=== PATIENT | male | born 1945 | race Caucasian/White ===

== ENCOUNTER 2016-08-10 05:03 | Observation (INO) | payer OTHER, MEDICAID ==
[~2016-08-10] VITALS: Ht 157.5 cm; Wt 90.0 kg
[2016-08-10] VITALS (15 sets, daily range): BP systolic 111–160; BP diastolic 62–83; PULSE 90–114; RESP 18–22; TEMP 98.7–99; O2SAT 94–100
[~2016-08-10 05:03] MED LIST: ALBU0.63 NEB; ASPI81 PO; ATOR40TA49 PO; BACT2CRE TOP; BRIM0.2S; DUONI NEB; LORTA5 PO; METO25 PO; PRED10 PO; TORS20TA PO; TRAV0.00 EACH EYE; UMEC1AER INH; [UNRECOGNIZED DRUG - CODE] PO
[2016-08-10] MEDS ORDERED: RESP: ALBUTEROL 2.5 MG/IPRATROPIUM 0.5 MG NEB (PRN) ONE (05:09)
[2016-08-10] MEDS ORDERED: methylPREDNISolone SOD SUCC 125 MG/2 ML VIAL IVP ONE (05:15)
[2016-08-10] MEDS ORDERED: SODIUM CHLORIDE 0.9% FLUSH 10 ML FLUSH IVF PRN (05:15)
[2016-08-10] MEDS: RESP: ALBUTEROL 2.5 MG/IPRATROPIUM 0.5 MG NEB (SCH) INH ×3 (05:25→05:52)
[2016-08-10 05:29] LABS: AUTOMATED NEUTROPHIL # 9.7 TH/MM3 (1.8-7.7); BASOPHIL # 0.1 TH/MM3 (0-0.2); BASOPHIL % 0.5 % (0.0-2.0); EOSINOPHIL # 0.2 TH/MM3 (0-0.4); HEMATOCRIT 47.4 % (39.0-51.0); LYMPH % 29.7 % (9.0-44.0); LYMPHOCYTE # 4.7 TH/MM3 (1.0-4.8); MEAN CELL VOLUME 90.7 FL (80.0-100.0); MEAN CORPUSCULAR HEMOGLOBIN 30.8 PG (27.0-34.0); MEAN CORPUSCULAR HGB CONC 33.9 % (32.0-36.0); MONO % 7.9 % (0.0-8.0); NEUT % 60.9 % (16.0-70.0); PLATELET COUNT 291 TH/MM3 (150-450); RED BLOOD COUNT 5.23 MIL/MM3 (4.50-5.90); RED CELL DISTRIBUTION WIDTH 17.3 % (11.6-17.2)
[2016-08-10 05:33] LABS: HEMO FLAGS AUTO DIFF
[2016-08-10] MEDS ORDERED: TORS20TA PO (05:33)
--- NOTE | 2016-08-10 05:44 | PD ---
HPI . Dyspnea Chief Complaint: Respiratory Symptoms Time Seen by Provider: 05:12 Travel History International Travel<30 days: No Contact w/Intl Traveler<30days: No Traveled to known affect area: No History of Present Illness HPI Patient presents complaining with increased dyspnea. He has a history of COPD and is on home O2. He reports that his oxygen tank is running very low at home. He states that this is causing him to be very anxious. He states that he has used his nebulizer machine 3 times in the last 24 hours. He denies any fever. His dyspnea has been exacerbated by anxiety related to his nearly empty oxygen tank. Medical history is significant for hypertension, CABG which was done in November 2015, COPD. PFSH Past Medical History Hx Anticoagulant Therapy: Yes Arthritis: Yes Asthma: Yes Autoimmune Disease: No Anxiety: Yes Depression: No Heart Rhythm Problems: No Cancer: No Cardiovascular Problems: Yes High Cholesterol: Yes Chemotherapy: No Chest Pain: Yes Congestive Heart Failure: No COPD: Yes Diabetes: No Diminished Hearing: No Endocrine: No Gastrointestinal Disorders: Yes GERD: No Glaucoma: Yes Genitourinary: No Hiatal Hernia: No Hypertension: Yes Immune Disorder: No Implanted Vascular Access Dvce: No Musculoskeletal: Yes Neurologic: No Psychiatric: Yes Reproductive: No Respiratory: Yes (COPD) Radiation Therapy: No Sickle Cell Disease: No Sleep Apnea: No Thyroid Disease: No Ulcer: No Tetanus Vaccination: < 5 Years Influenza Vaccination: No Past Surgical History Abdominal Surgery: Yes AICD: No Arteriovenous Shunt: No Cardiac Surgery: Yes (cath, CABGX3 VESSELS) Cholecystectomy: Yes Ear Surgery: No Endocrine Surgery: No Eye Surgery: Yes Genitourinary Surgery: No Gynecologic Surgery: No Insulin Pump: No Joint Replacement: No Neurologic Surgery: No Oral Surgery: No Pacemaker: No Thoracic Surgery: Yes ( ) Tonsillectomy: Yes Other Surgery: Yes (catarcts, gallbladder, glaucoma) Social History Alcohol Use: Yes (OCC) Tobacco Use: No Substance Use: Yes (MARIJUANA) Allergies-Medications (Allergen,Severity, Reaction): Coded Allergies: *MDRO Multi-Drug Resistant Organism (Verified Adverse Reaction, Unknown, ) 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 Torsemide 20 Mg Tab 20 Mg PO BID 30 Days Resp: Albuterol/Ipratropium 2.5 Mg/0.5 Mg (Albuterol/Ipratropium) 1 Amp Nebu 1 Ampule NEB Q4HR NEB PRN 30 Days Metoprolol Tartrate 25 mg (Metoprolol Tartrate) 25 Mg Tab 12.5 Mg PO BID 30 Days Lipitor 40 Mg Tab (Atorvastatin Calcium) 40 Mg Tab 40 Mg PO DAILY 30 Days Aspirin Low Strength (Aspirin) 81 Mg Chw 81 Mg PO DAILY 30 Days KCl 8 Meq Cap (Potassium Chloride) 8 Meq Capcr 16 Meq PO DAILY 30 Days Reported Torsemide 20 Mg Tab 40 Mg PO BID Travatan Z (Travoprost) 0.004 % Finesse 1 Drop EACH EYE HS Brimonidine Tartrate 0.2 % Sarah 1 Drop TID Anoro Ellipta 62.5-25 Mcg/INH (Umeclidinium-Vilanterol) 1 Aer Aer 1 Puff INH DAILY Accuneb 0.63 mg/3 ml (Albuterol Sulfate) 0.63 Mg/3 Ml Neb 0.63 Mg NEB DIRECTED Review of Systems Except as stated in HPI: all other systems reviewed are Neg General / Constitutional: No: Fever, Chills Respiratory: Positive: Shortness of Breath, Wheezing Psychiatric: Positive: Anxiety Physical Exam Narrative GENERAL: Patient is "tripoding." SKIN: Warm and dry. HEAD: Atraumatic. Normocephalic. EYES: Pupils equal and round. Extraocular movements are intact. ENT: No nasal bleeding or discharge. Mucous membranes pink and moist. NECK: Trachea midline. Neck is supple. CARDIOVASCULAR: Regular rate and rhythm. Heart sounds are normal. RESPIRATORY: No accessory muscle use. Diffuse inspiratory and expiratory wheezing. GASTROINTESTINAL: Abdomen soft, non-tender, nondistended. MUSCULOSKELETAL: No obvious deformities. No edema. NEUROLOGICAL: Awake and alert. No obvious cranial nerve deficits. Motor grossly within normal limits. Normal speech. PSYCHIATRIC: Appropriate mood and affect; insight and judgment normal. Data Data Last Documented VS Vital Signs Date Time Temp Pulse Resp B/P Pulse Ox O2 Delivery O2 Flow Rate FiO2 08/10/16 06:21 97 20 133/67 98 Nasal Cannula 3 08/10/16 05:56 98.9 Orders Albuterol-Ipratropium Neb (Duoneb Neb) (08/10/16 05:09) Complete Blood Count With Diff (08/10/16 05:12) Basic Metabolic Panel (Bmp) (08/10/16 05:12) B-Type Natriuretic Peptide (08/10/16 05:12) Ckmb (Isoenzyme) Profile (08/10/16 05:12) Troponin I (08/10/16 05:12) Iv Access Insert/Monitor (08/10/16 05:12) Ecg Monitoring (08/10/16 05:12) Oximetry (08/10/16 05:12) Oxygen Administration (08/10/16 05:12) Chest, Single Ap (08/10/16 05:12) Sodium Chloride 0.9% Flush (Ns Flush) (08/10/16 05:15) Methylprednisolone So Succ Inj (Solumedr (08/10/16 05:15) Albuterol-Ipratropium Neb (Duoneb Neb) (08/10/16 05:15) CKMB (08/10/16 05:15) CKMB% (08/10/16 05:15) Labs Laboratory Tests Test 08/10/16 05:15 White Blood Count 16.0 TH/MM3 Red Blood Count 5.23 MIL/MM3 Hemoglobin 16.1 GM/DL Hematocrit 47.4 % Mean Corpuscular Volume 90.7 FL Mean Corpuscular Hemoglobin 30.8 PG Mean Corpuscular Hemoglobin 33.9 % Concent Red Cell Distribution Width 17.3 % Platelet Count 291 TH/MM3 Mean Platelet Volume 7.7 FL Neutrophils (%) (Auto) 60.9 % Lymphocytes (%) (Auto) 29.7 % Monocytes (%) (Auto) 7.9 % Eosinophils (%) (Auto) 1.0 % Basophils (%) (Auto) 0.5 % Neutrophils # (Auto) 9.7 TH/MM3 Lymphocytes # (Auto) 4.7 TH/MM3 Monocytes # (Auto) 1.3 TH/MM3 Eosinophils # (Auto) 0.2 TH/MM3 Basophils # (Auto) 0.1 TH/MM3 CBC Comment AUTO DIFF Differential Total Cells 100 Counted Neutrophils % (Manual) 57 % Band Neutrophils % 3 % Lymphocytes % 33 % Monocytes % 4 % Neutrophils # (Manual) 10.1 TH/MM3 Metamyelocytes 1 % Myelocytes 2 % Differential Comment FINAL DIFF MANUAL Atypical Lymphocytes % Platelet Estimate NORMAL Platelet Morphology Comment NORMAL Red Cell Morphology Comment NORMAL Sodium Level 138 MEQ/L Potassium Level 3.4 MEQ/L Chloride Level 98 MEQ/L Carbon Dioxide Level 31.7 MEQ/L Anion Gap 8 MEQ/L Blood Urea Nitrogen 32 MG/DL Creatinine 1.49 MG/DL Estimat Glomerular Filtration 47 ML/MIN Rate Random Glucose 116 MG/DL Calcium Level 8.7 MG/DL Total Creatine Kinase 135 U/L Creatine Kinase MB 5.8 NG/ML Troponin I 0.14 NG/ML B-Type Natriuretic Peptide 125 PG/ML MDM Medical Decision Making Medical Screen Exam Complete: Yes Emergency Medical Condition: Yes Medical Record Reviewed: Yes (patient was admitted here from for dyspnea. He had a left pleural effusion which was drained with a thoracostomy tube. Intubation was required at that time.) Interpretation(s) EKG has a sinus rhythm with no acute ST segment changes. Differential Diagnosis Differential diagnosis of dyspnea includes but is not limited to congestive heart failure, pneumonia, wheezing, pneumothorax, pulmonary embolism Narrative Course Patient presents with dyspnea. He was wheezing. I have ordered labs and Solu- Medrol. He will be evaluated for pneumonia, CHF, pneumothorax, pleural effusion. CBC & BMP Diagram 08/10/16 05:15 Patient is on steroids which probably explains his white blood count. BNP is 125. Troponin is 0.14. His previous troponins have not been that elevated. His CK-MB is 5.8. Patient reports that he feels much better. He is amenable to admission for further evaluation of the elevated troponin. Diagnosis Primary Impression: COPD exacerbation Additional Impressions: Elevated troponin COPD (chronic obstructive pulmonary disease) Qualified Code: J44.9 - Chronic obstructive pulmonary disease, unspecified COPD type Condition: Stable Lilia Hazel MD August 10, 2016 05:43
[2016-08-10 06:09] LABS: ANION GAP 8 MEQ/L (5-15); BICARBONATE 31.7 MEQ/L (21.0-32.0); BLOOD UREA NITROGEN 32 MG/DL (7-18); CHLORIDE 98 MEQ/L (98-107); GLOMERULAR FILTRATION RATE 47 ML/MIN (>89); POTASSIUM 3.4 MEQ/L (3.5-5.1); SODIUM (NA) 138 MEQ/L (136-145)
[2016-08-10 06:10] LABS: CREATINE KINASE 135 U/L (39-308)
[2016-08-10 06:12] LABS: BANDS 3 % (0-6); METAMYELOCYTES 1 % (0-1); MYELOCYTES 2 % (0-0); NEUTROPHIL # MANUAL DIFF 10.1 TH/MM3 (1.8-7.7); POLYS (SEG NEUTROPHILS) 57 % (16-70); WBC DIFF SAMPLE 100
[2016-08-10 06:13] LABS: PLATELET ESTIMATE SMEAR NORMAL (NORMAL); PLATELET MORPHOLOGY NORMAL (NORMAL); SCAN/DIFF FINAL DIFF MANUAL
[2016-08-10 06:22] LABS: CKMB 5.8 NG/ML (0.5-3.6)
--- NOTE | 2016-08-10 06:32 | RADRPT ---
EXAM DATE/TIME: 08/10/2016 05:26 [facility] COMPARISON: CHEST SINGLE AP, January 15, 2016, 11:30. INDICATIONS : Short of breath. MEDICAL HISTORY : Chronic obstructive pulmonary disease. Emphysema. SURGICAL HISTORY : None. ENCOUNTER: Initial ACUITY: 1 day PAIN SCORE: 0/10 LOCATION: Bilateral chest FINDINGS: The cardiac silhouette is normal in transverse diameter. Median sternotomy wires are present. There a re chronic fibrotic changes bilaterally. There is no evidence of pneumonia. CONCLUSION: 1. Cardiomegaly. Chronic fibrotic changes bilaterally unchanged from the prior study. No acute pulmon shena disease. Lam Rico MD on August 10, 2016 at 6:29 Board Certified Radiologist. This report was verified electronically.
[2016-08-10] MEDS ORDERED: ASPIRIN 81 MG CHEW TAB CHEW ONE (07:30)
[2016-08-10] MEDS ORDERED: SODIUM CHLORIDE 0.9% FLUSH 10 ML FLUSH IV FLUSH PRN (07:45)
[2016-08-10] MEDS ORDERED: MAGNESIUM HYDROXIDE SUSP 30 ML CUP PO PRN (07:45)
[2016-08-10] MEDS ORDERED: ONDANSETRON HCL 4 MG/2 ML VIAL IVP PRN (07:45)
[2016-08-10] MEDS ORDERED: NALOXONE HCL 0.4 MG/ML AMP IV PRN (07:45)
[2016-08-10] MEDS ORDERED: ACETAMINOPHEN 325 MG TAB PO PRN (07:45)
--- NOTE | 2016-08-10 07:55 | HHI.HP ---
[facility] Izzy Diaz MD Admission Diagnosis copd exacerbation Diagnoses: (1) COPD exacerbation Diagnosis: Principal (2) Elevated troponin Diagnosis: Secondary Chief Complaint: Shortness of Breath Travel History International Travel<30 Days: No Contact w/Intl Traveler <30 Da: No Traveled to Known Affected Are: No Review of Systems Constitutional: DENIES: Fever, Chills Eyes: DENIES: Blurred vision, Diplopia Ears, nose, mouth, throat: DENIES: Hearing loss, Vertigo Respiratory: COMPLAINS OF: Wheezing, Shortness of breath Cardiovascular: DENIES: Chest pain, Palpitations Gastrointestinal: DENIES: Abdominal pain, Black stools Musculoskeletal: DENIES: Joint pain, Muscle aches Integumentary: DENIES: Abnormal pigmentation Hematologic/lymphatic: DENIES: Bruising Immunologic/allergic: DENIES: Eczema Neurologic: DENIES: Abnormal gait, Headache Psychiatric: DENIES: Anxiety, Confusion Past Family Social History Past Medical History COPD CHF CAD CKD Old [place] Past Surgical History CABGx3 Reported Medications Reported Meds & Active Scripts Active Deltasone 10 Mg Tab (Prednisone) 10 Mg Tab 10 Mg PO DIRECTED 21 Days 50 mg po daily for one week then 40 mg po daily. Torsemide 20 Mg Tab 20 Mg PO BID 30 Days Resp: Albuterol/Ipratropium 2.5 Mg/0.5 Mg (Albuterol/Ipratropium) 1 Amp Nebu 1 Ampule NEB Q4HR NEB PRN 30 Days Metoprolol Tartrate 25 mg (Metoprolol Tartrate) 25 Mg Tab 12.5 Mg PO BID 30 Days Lipitor 40 Mg Tab (Atorvastatin Calcium) 40 Mg Tab 40 Mg PO DAILY 30 Days Aspirin Low Strength (Aspirin) 81 Mg Chw 81 Mg PO DAILY 30 Days KCl 8 Meq Cap (Potassium Chloride) 8 Meq Capcr 16 Meq PO DAILY 30 Days Reported Torsemide 20 Mg Tab 40 Mg PO BID Travatan Z (Travoprost) 0.004 % Finesse 1 Drop EACH EYE HS Brimonidine Tartrate 0.2 % Sarah 1 Drop TID Anoro Ellipta 62.5-25 Mcg/INH (Umeclidinium-Vilanterol) 1 Aer Aer 1 Puff INH DAILY Accuneb 0.63 mg/3 ml (Albuterol Sulfate) 0.63 Mg/3 Ml Neb 0.63 Mg NEB DIRECTED Allergies: Coded Allergies: *MDRO Multi-Drug Resistant Organism (Verified Adverse Reaction, Unknown, ) 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) Physical Exam Vital Signs Vital Signs Date Time Temp Pulse Resp B/P Pulse Ox O2 Delivery O2 Flow Rate FiO2 08/10/16 06:50 93 20 131/66 97 Nasal Cannula 3 08/10/16 06:21 97 20 133/67 98 Nasal Cannula 3 08/10/16 05:56 98.9 114 20 160/77 98 Nasal Cannula 4 08/10/16 05:26 99 Nasal Cannula 4 08/10/16 05:26 106 22 160/77 97 Nasal Cannula 4 08/10/16 05:14 97 Nasal Cannula 4 08/10/16 05:14 98 Nasal Cannula 4 08/10/16 05:10 99.0 110 22 160/77 100 Physical Exam GENERAL: This is a well-nourished, well-developed patient, in no apparent distress. SKIN: No rashes, ecchymoses or lesions. Cool and dry. HEAD: Atraumatic. Normocephalic. No temporal or scalp tenderness. EYES: Pupils equal round and reactive. Extraocular motions intact. No scleral icterus. No injection or drainage. ENT: Nose without bleeding, purulent drainage or septal hematoma. Throat without erythema, tonsillar hypertrophy or exudate. Uvula midline. Airway patent. NECK: Trachea midline. No JVD or lymphadenopathy. Supple, nontender, no meningeal signs. CARDIOVASCULAR: Regular rate and rhythm without murmurs, gallops, or rubs. RESPIRATORY: Clear to auscultation. Breath sounds equal bilaterally. No wheezes , rales, or rhonchi. GASTROINTESTINAL: Abdomen soft, non-tender, nondistended. No hepato-splenomegaly , or palpable masses. No guarding. MUSCULOSKELETAL: Extremities without clubbing, cyanosis, or edema. No joint tenderness, effusion, or edema noted. No calf tenderness. Negative Homans sign bilaterally. NEUROLOGICAL: Awake and alert. Cranial nerves II through XII intact. Motor and sensory grossly within normal limits. Five out of 5 muscle strength in all muscle groups. Normal speech. Laboratory Laboratory Tests Test 08/10/16 05:15 White Blood Count 16.0 Red Blood Count 5.23 Hemoglobin 16.1 Hematocrit 47.4 Mean Corpuscular Volume 90.7 Mean Corpuscular Hemoglobin 30.8 Mean Corpuscular Hemoglobin 33.9 Concent Red Cell Distribution Width 17.3 Platelet Count 291 Mean Platelet Volume 7.7 Neutrophils (%) (Auto) 60.9 Lymphocytes (%) (Auto) 29.7 Monocytes (%) (Auto) 7.9 Eosinophils (%) (Auto) 1.0 Basophils (%) (Auto) 0.5 Neutrophils # (Auto) 9.7 Lymphocytes # (Auto) 4.7 Monocytes # (Auto) 1.3 Eosinophils # (Auto) 0.2 Basophils # (Auto) 0.1 CBC Comment AUTO DIFF Differential Total Cells 100 Counted Neutrophils % (Manual) 57 Band Neutrophils % 3 Lymphocytes % 33 Monocytes % 4 Neutrophils # (Manual) 10.1 Metamyelocytes 1 Myelocytes 2 Differential Comment FINAL DIFF MANUAL Atypical Lymphocytes Platelet Estimate NORMAL Platelet Morphology Comment NORMAL Red Cell Morphology Comment NORMAL Sodium Level 138 Potassium Level 3.4 Chloride Level 98 Carbon Dioxide Level 31.7 Anion Gap 8 Blood Urea Nitrogen 32 Creatinine 1.49 Estimat Glomerular Filtration 47 Rate Random Glucose 116 Calcium Level 8.7 Total Creatine Kinase 135 Creatine Kinase MB 5.8 Troponin I 0.14 B-Type Natriuretic Peptide 125 Result Diagram: 08/10/16 0515 08/10/16 0515 Assessment and Plan Problem List: (1) Elevated troponin ICD Code: R74.8 Status: Acute (2) COPD exacerbation ICD Code: J44.1 Status: Acute (3) CHF (congestive heart failure) ICD Code: I50.9 Status: Acute (4) Old AR (myocardial infarction) ICD Code: I25.2 Status: Acute (5) CKD (chronic kidney disease) ICD Code: N18.9 Status: Acute Physician Certification 2 Midnight Certification Type: Admission for Inpatient Services Order for Inpatient Services The services are ordered in accordance with Medicare regulations or non- Medicare payer requirements, as applicable. In the case of services not specified as inpatient-only, they are appropriately provided as inpatient services in accordance with the 2-midnight benchmark. Estimated LOS (days): 4 days is the estimated time the patient will need to remain in the hospital, assuming treatment plan goals are met and no additional complications. Post-Hospital Plan: Uriel Garcia MD August 10, 2016 07:54
[2016-08-10] MEDS ORDERED: RESP: ALBUTEROL 2.5 MG/3 ML NEB (PRN) INH (08:00)
[2016-08-10] MEDS ORDERED: PILL SPLITTER OTHER PRN (08:00)
[2016-08-10] MEDS: ENOXAPARIN SODIUM 40 MG/0.4 ML SYRINGE SQ SCH (08:54)
[2016-08-10] MEDS: methylPREDNISolone SOD SUCC 125 MG/2 ML VIAL IVP SCH ×3 (08:55→21:18)
[2016-08-10] MEDS ORDERED: UMECLIDINIUM 62.5 MCG/VILANTEROL 25 MCG INHALER INH SCH (09:00)
[2016-08-10] MEDS ORDERED: ATORVASTATIN 40 MG TAB PO SCH ×2 (09:00→21:00)
[2016-08-10] MEDS ORDERED: TORSEMIDE 20 MG TAB PO SCH (09:00)
[2016-08-10] MEDS ORDERED: METOPROLOL TARTRATE 25 MG TAB PO SCH (09:00)
[2016-08-10] MEDS ORDERED: ASPIRIN 81 MG CHEW TAB PO SCH (09:00)
[2016-08-10] MEDS ORDERED: POTASSIUM CHLORIDE 8 MEQ CAP PO SCH (09:00)
[2016-08-10] MEDS: RESP: IPRATROPIUM 0.5 MG/2.5 ML NEB INH SCH ×3 (09:23→21:43)
[2016-08-10] MEDS: AZITHROMYCIN 250 MG TAB PO SCH (09:32)
[2016-08-10] MEDS: TORSEMIDE 20 MG TAB PO SCH ×2 (09:33→21:39)
[2016-08-10] MEDS: SODIUM CHLORIDE 0.9% FLUSH 10 ML FLUSH IV FLUSH SCH ×2 (09:34→21:18)
[2016-08-10] MEDS: BRIMONIDINE TARTRATE 0.2% OPHT SOLN 5 ML BTL EACH EYE SCH ×3 (09:34→18:00)
[2016-08-10] MEDS ORDERED: POTA-163 PO (11:02)
[2016-08-10] MEDS ORDERED: TRIA.1%T TOPICAL (11:02)
[2016-08-10] MEDS ORDERED: VENTAER INH (11:02)
[2016-08-10] MEDS ORDERED: BRIM0.2S4 EACH EYE (11:02)
[2016-08-10] MEDS ORDERED: PRED10 PO (11:02)
[2016-08-10] MEDS ORDERED: BUSP5TAB PO (11:02)
[2016-08-10] MEDS ORDERED: METO25TA3 PO (11:02)
[2016-08-10] MEDS ORDERED: KETO2CRE TOPICAL (11:02)
[2016-08-10] MEDS ORDERED: ADVA250A INH (11:02)
[2016-08-10] MEDS ORDERED: LORA-361 PO (11:02)
[2016-08-10] MEDS ORDERED: ZOLP5TAB3 PO (11:02)
[2016-08-10] MEDS ORDERED: TRAZ100T4 PO (11:02)
[2016-08-10] MEDS ORDERED: ATOR40TA16 PO (11:02)
[2016-08-10] MEDS ORDERED: TRAV0.00 EACH EYE (11:02)
[2016-08-10] MEDS ORDERED: SPIRCAP INH (11:02)
--- NOTE | 2016-08-10 11:51 | EKG ---
Date Performed: 08/10/2016 Time Performed: 05:11:59 PTAGE: 70 years EKG: SINUS TACHYCARDIA RIGHT ATRIAL ENLARGEMENT POSSIBLE LEFT ATRIAL ENLARGEMENT DIFFUSE NONSPEC IFIC ST/T CHANGES ABNORMAL ECG PREVIOUS TRACING : 08/10/2016 02.42 No significant change from previous tracing noted. DOCTOR: Jayson Olivares Interpretating Date/Time 08/10/2016 11:49:42
[2016-08-10] MEDS ORDERED: FUROSEMIDE 40 MG/4 ML VIAL IV PUSH ONE (15:00)
[2016-08-10] MEDS ORDERED: ZOLPIDEM TARTRATE 5 MG TAB PO PRN (15:00)
--- NOTE | 2016-08-10 19:55 | HHI.HP ---
[facility] Izzy Diaz MD Admission Diagnosis copd exacerbation Diagnoses: (1) Elevated troponin Diagnosis: Secondary (2) COPD exacerbation Diagnosis: Principal (3) CHF (congestive heart failure) Diagnosis: Secondary (4) Old [place] (myocardial infarction) Diagnosis: Principal (5) CKD (chronic kidney disease) Diagnosis: Principal (6) CHF exacerbation Diagnosis: Principal Travel History International Travel<30 Days: No Contact w/Intl Traveler <30 Da: No Traveled to Known Affected Are: No History of Present Illness Mr. Mendoza is a 70 year old male. He is here today due to acute respiratory distress. He has COPD with home O2 use (intermittently). Part of his distress is related to an exacerbation of his COPD. Part is related to his CHF which has not been controlled in about two weeks regarding fluid balance. He has no other complaints. When seen he is feeling better than when he arrived to the ER , but he is not yet at baseline. Review of Systems Constitutional: DENIES: Fever, Chills Ears, nose, mouth, throat: DENIES: Hearing loss, Vertigo Respiratory: COMPLAINS OF: Wheezing, Shortness of breath Cardiovascular: DENIES: Chest pain, Palpitations Gastrointestinal: DENIES: Abdominal pain, Black stools Musculoskeletal: COMPLAINS OF: Back pain, DENIES: Joint pain Integumentary: DENIES: Abnormal pigmentation Hematologic/lymphatic: DENIES: Bruising Immunologic/allergic: DENIES: Eczema Neurologic: DENIES: Headache, Tremor Psychiatric: DENIES: Anxiety, Confusion Past Family Social History Past Medical History COPD CHF CAD CKD Old [place] Past Surgical History CABGx3 Allergies: Coded Allergies: *MDRO Multi-Drug Resistant Organism (Verified Adverse Reaction, Unknown, ) 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) Active Ordered Medications Administered Medications Medications (Trade) Dose Ordered Sig/Kenneth Route PRN Reason Start Time Stop Time Status Last Admin Dose Admin Sodium Chloride (NS Flush) 2 ml BID IV FLUSH 08/10/16 09:00 08/10/16 09:34 Enoxaparin Sodium (Lovenox Inj) 40 mg Q24H SQ 08/10/16 07:45 08/10/16 08:54 Atorvastatin Calcium (Lipitor) 40 mg DAILY PO 08/10/16 09:00 08/10/16 09:33 Brimonidine Tartrate (Alphagan 0.2% Opth Soln) 1 drop TID EACH EYE 08/10/16 09:00 08/10/16 12:29 Metoprolol Tartrate (Lopressor) 12.5 mg BID PO 08/10/16 09:00 08/10/16 09:33 Potassium Chloride (KCl) 16 meq DAILY PO 08/10/16 09:00 08/10/16 09:34 Torsemide (Demadex) 40 mg BID PO 08/10/16 09:00 08/10/16 09:33 Torsemide (Demadex) 20 mg BID PO 08/10/16 09:00 08/10/16 09:33 Methylprednisolone Sodium Succinate (SoluMEDROL INJ) 60 mg Q6H IVP 08/10/16 08:00 08/10/16 14:44 Azithromycin (Zithromax) 500 mg Taper DAILY PO 08/10/16 09:00 08/15/16 08:59 08/10/16 09:32 Miscellaneous (Pill Splitter) 1 ea UNSCH PRN OTHER SEE LABEL COMMENTS 08/10/16 08:00 08/10/16 09:33 Family History none Social History Past history of smoking No alcohol No current smoking No drug abuse Physical Exam Vital Signs Vital Signs Date Time Temp Pulse Resp B/P Pulse Ox O2 Delivery O2 Flow Rate FiO2 08/10/16 19:32 98.7 100 18 111/62 94 08/10/16 18:04 96 08/10/16 15:32 91 18 134/83 96 08/10/16 14:51 94 20 133/71 96 Nasal Cannula 3 08/10/16 12:08 95 18 124/79 96 Nasal Cannula 3 08/10/16 09:24 96 Nasal Cannula 3.00 08/10/16 08:52 94 18 120/79 94 Nasal Cannula 3 08/10/16 06:50 93 20 131/66 97 Nasal Cannula 3 08/10/16 06:21 97 20 133/67 98 Nasal Cannula 3 08/10/16 05:56 98.9 114 20 160/77 98 Nasal Cannula 4 08/10/16 05:26 99 Nasal Cannula 4 08/10/16 05:26 106 22 160/77 97 Nasal Cannula 4 08/10/16 05:14 97 Nasal Cannula 4 08/10/16 05:14 98 Nasal Cannula 4 08/10/16 05:10 99.0 110 22 160/77 100 Physical Exam GENERAL: NAD, A&Ox3 SKIN: Warm and dry. HEAD: Normocephalic. EYES: No scleral icterus. No injection or drainage. NECK: Supple, trachea midline. No JVD or lymphadenopathy. CARDIOVASCULAR: Regular rate and rhythm without murmurs, gallops, or rubs. RESPIRATORY: Breath sounds equal bilaterally. No accessory muscle use. GASTROINTESTINAL: Abdomen soft, non-tender, nondistended. MUSCULOSKELETAL: No cyanosis, or edema. BACK: Nontender without obvious deformity. No CVA tenderness. Laboratory Laboratory Tests Test 08/10/16 05:15 White Blood Count 16.0 Red Blood Count 5.23 Hemoglobin 16.1 Hematocrit 47.4 Mean Corpuscular Volume 90.7 Mean Corpuscular Hemoglobin 30.8 Mean Corpuscular Hemoglobin 33.9 Concent Red Cell Distribution Width 17.3 Platelet Count 291 Mean Platelet Volume 7.7 Neutrophils (%) (Auto) 60.9 Lymphocytes (%) (Auto) 29.7 Monocytes (%) (Auto) 7.9 Eosinophils (%) (Auto) 1.0 Basophils (%) (Auto) 0.5 Neutrophils # (Auto) 9.7 Lymphocytes # (Auto) 4.7 Monocytes # (Auto) 1.3 Eosinophils # (Auto) 0.2 Basophils # (Auto) 0.1 CBC Comment AUTO DIFF Differential Total Cells 100 Counted Neutrophils % (Manual) 57 Band Neutrophils % 3 Lymphocytes % 33 Monocytes % 4 Neutrophils # (Manual) 10.1 Metamyelocytes 1 Myelocytes 2 Differential Comment FINAL DIFF MANUAL Atypical Lymphocytes Platelet Estimate NORMAL Platelet Morphology Comment NORMAL Red Cell Morphology Comment NORMAL Sodium Level 138 Potassium Level 3.4 Chloride Level 98 Carbon Dioxide Level 31.7 Anion Gap 8 Blood Urea Nitrogen 32 Creatinine 1.49 Estimat Glomerular Filtration 47 Rate Random Glucose 116 Calcium Level 8.7 Total Creatine Kinase 135 Creatine Kinase MB 5.8 Troponin I 0.14 B-Type Natriuretic Peptide 125 Result Diagram: 08/10/1615 08/10/1615 Assessment and Plan Problem List: (1) Elevated troponin ICD Code: R74.8 Status: Acute (2) COPD exacerbation ICD Code: J44.1 Status: Acute (3) CHF (congestive heart failure) ICD Code: I50.9 Status: Acute (4) Old [place] (myocardial infarction) ICD Code: I25.2 Status: Acute (5) CKD (chronic kidney disease) ICD Code: N18.9 Status: Acute (6) CHF exacerbation ICD Code: I50.9 Status: Acute Assessment and Plan COPD Exacerbation Duonebs scheduled Albuterol PRN Azithromycin Systemic steroids PRN Oxygen Follow for improvement CHF Exacerbation Continue baseline treatment Caution due to ARF Point treatments with Lasix as needed, based on clinical and lab findings Elevated Troponin At expected elevation given CKD, CHF exacerbation and COPD Exacerbation No chest pain Repeat Troponin in AM CKD Follow renal function Uriel Ferreira MD August 10, 2016 19:55
[2016-08-10] MEDS ORDERED: traZODone HCL 100 MG TAB PO SCH (21:00)
[2016-08-10] MEDS ORDERED: LATANOPROST 0.005% OPHT SOLN 2.5 ML BTL EACH EYE SCH (21:00)
[2016-08-10] MEDS: TRIAMCINOLONE ACETONIDE 0.1% CREAM 15 GM TOPICAL SCH (21:00)
[2016-08-10] MEDS: LATANOPROST 0.005% OPHT SOLN 2.5 ML BTL EACH EYE SCH (21:18)
[2016-08-10] MEDS: POTASSIUM CHLORIDE 20 MEQ CONTROLLED RELEASE TAB PO SCH (21:19)
[2016-08-10] MEDS: busPIRone HCL 5 MG TAB PO SCH (21:19)
[2016-08-10] MEDS: METOPROLOL TARTRATE 25 MG TAB PO SCH (21:20)
[2016-08-11 00:10] VITALS: BP 101/60; PULSE 86; RESP 18; O2SAT 95
[2016-08-11] MEDS: methylPREDNISolone SOD SUCC 125 MG/2 ML VIAL IVP SCH ×2 (02:39→08:31)
[2016-08-11] MEDS: RESP: IPRATROPIUM 0.5 MG/2.5 ML NEB INH SCH (02:55)
[2016-08-11 04:02] VITALS: BP 102/66; PULSE 87; RESP 18; TEMP 98.6; O2SAT 93
[2016-08-11 05:56] LABS: AUTOMATED NEUTROPHIL # 18.9 TH/MM3 (1.8-7.7); BASOPHIL % 0.1 % (0.0-2.0); HEMATOCRIT 41.9 % (39.0-51.0); HEMO FLAGS DIFF FINAL; LYMPH % 3.8 % (9.0-44.0); LYMPHOCYTE # 0.8 TH/MM3 (1.0-4.8); MEAN CELL VOLUME 89.9 FL (80.0-100.0); MEAN CORPUSCULAR HGB CONC 34.4 % (32.0-36.0); MONO % 1.8 % (0.0-8.0); NEUT % 94.3 % (16.0-70.0); PLATELET COUNT 242 TH/MM3 (150-450); RED BLOOD COUNT 4.66 MIL/MM3 (4.50-5.90); RED CELL DISTRIBUTION WIDTH 17.1 % (11.6-17.2); WHITE BLOOD COUNT 20.1 TH/MM3 (4.0-11.0)
[2016-08-11 06:05] LABS: BICARBONATE 30.3 MEQ/L (21.0-32.0); POTASSIUM 3.2 MEQ/L (3.5-5.1)
[2016-08-11] MEDS ORDERED: FUROSEMIDE 40 MG/4 ML VIAL IV PUSH ONE (07:30)
[2016-08-11] MEDS: ENOXAPARIN SODIUM 40 MG/0.4 ML SYRINGE SQ SCH (07:45)
[2016-08-11] MEDS ORDERED: IPRASOL INH (08:05)
[2016-08-11] MEDS ORDERED: PRED20 PO (08:05)
[2016-08-11] MEDS ORDERED: AZIT250T3 PO (08:05)
--- NOTE | 2016-08-11 08:10 | HHI.DS ---
Discharge Summary Admission Date August 10, 2016 at 7:45 am Discharge Date: August 11, 2016 Admitting Diagnosis copd exacerbation (1) Elevated troponin ICD Code: R74.8 Diagnosis: Secondary (2) COPD exacerbation ICD Code: J44.1 Diagnosis: Principal (3) CHF (congestive heart failure) ICD Code: I50.9 Diagnosis: Secondary (4) Old NE (myocardial infarction) ICD Code: I25.2 Diagnosis: Secondary (5) CKD (chronic kidney disease) ICD Code: N18.9 Diagnosis: Secondary (6) CHF exacerbation ICD Code: I50.9 Diagnosis: Principal Procedures none Brief History - From Admission Mr. Mendoza is a 70 year old male. He is here today due to acute respiratory distress. He has COPD with home O2 use (intermittently). Part of his distress is related to an exacerbation of his COPD. Part is related to his CHF which has not been controlled in about two weeks regarding fluid balance. He has no other complaints. When seen he is feeling better than when he arrived to the ER , but he is not yet at baseline. CBC/BMP: 08/11/16 0508 08/11/16 0508 Significant Findings Laboratory Tests Test 08/10/16 08/11/16 05:15 05:08 White Blood Count 16.0 TH/MM3 20.1 TH/MM3 (4.0-11.0) (4.0-11.0) Red Cell Distribution Width 17.3 % (11.6-17.2) Neutrophils # (Auto) 9.7 TH/MM3 18.9 TH/MM3 (1.8-7.7) (1.8-7.7) Monocytes # (Auto) 1.3 TH/MM3 (0-0.9) Neutrophils # (Manual) 10.1 TH/MM3 (1.8-7.7) Myelocytes 2 % (0-0) Potassium Level 3.4 MEQ/L 3.2 MEQ/L (3.5-5.1) (3.5-5.1) Blood Urea Nitrogen 32 MG/DL (7-18) 33 MG/DL (7-18) Creatinine 1.49 MG/DL (0.60-1.30) Estimat Glomerular Filtration 47 ML/MIN (>89) 71 ML/MIN (>89) Rate Random Glucose 116 MG/DL 140 MG/DL (74-106) (74-106) Creatine Kinase MB 5.8 NG/ML (0.5-3.6) Troponin I 0.14 NG/ML 0.07 NG/ML (0.02-0.05) (0.02-0.05) B-Type Natriuretic Peptide 125 PG/ML (0-100) Neutrophils (%) (Auto) 94.3 % (16.0-70.0) Lymphocytes (%) (Auto) 3.8 % (9.0-44.0) Lymphocytes # (Auto) 0.8 TH/MM3 (1.0-4.8) Imaging Last Impressions Chest X-Ray 08/10/16 0512 Signed Impressions: Service Date/Time: Wednesday, August 10, 2016 05:26 - CONCLUSION: 1. Cardiomegaly. Chronic fibrotic changes bilaterally unchanged from the prior study. No acute pulmonary disease. Lam Rico MD PE at Discharge GENERAL: NAD, A&Ox3 SKIN: Warm and dry. HEAD: Normocephalic. EYES: No scleral icterus. No injection or drainage. NECK: Supple, trachea midline. No JVD or lymphadenopathy. CARDIOVASCULAR: Regular rate and rhythm without murmurs, gallops, or rubs. RESPIRATORY: Breath sounds equal bilaterally. No accessory muscle use. No wheezing. No crackles. GASTROINTESTINAL: Abdomen soft, non-tender, nondistended. MUSCULOSKELETAL: No cyanosis, or edema. BACK: Nontender without obvious deformity. No CVA tenderness. Pt update on day of discharge Feeling functional and ready for discharge. medically stable and clear for discharge. Hospital Course Mr. Mendoza was admitted with a COPD Exacerbation and CHF Exacerbation. With steroids, nebulized treatments, antibiotics and oxygen support he has improved regarding his COPD and is currently off his oxygen. With diuresis overnight, his peripheral and pulmonary edema is also improved. He is feeling at baseline. Renal function also improved with diuresis. Medically stable for discharge to home today. Pt Condition on Discharge: Stable Discharge Disposition: Discharge Home Discharge Time: <= 30 minutes Discharge Instructions DIET: Follow Instructions for: Heart Healthy Diet Activities you can perform: Regular-No Restrictions Follow up Referrals: PCP Follow-up - 2 Weeks New Medications: Azithromycin (Azithromycin) 250 Mg Tab 250 MG PO DIRECTED Take 2 tabs (500 mg) on day 1 then 1 tab daily x 4 days. Infection #5 Ref 0 TAB Ipratropium-Albuterol Neb (Duoneb) 0.5-2.5 Mg/3 Ml Neb 1 NEBULE INH BID Breathing Treatment #60 Ref 0 NEBULE Prednisone (Prednisone) 20 Mg Tab 40 MG PO DAILY Take 40 mg (2 tablets) daily for 5 days Shortness of Breath #3 Ref 0 TAB Continued Medications: Albuterol 18 GM Inh (Ventolin Hfa 18 GM Inh) 90 Mcg/Act Aer 2 PUFF INH Q6H PRN SHORTNESS OF BREATH #1 Ref 0 INHALER Atorvastatin (Atorvastatin) 40 Mg Tab 40 MG PO HS Cholesterol Management #30 Ref 0 TAB Brimonidine Opth Drops (Brimonidine Opth Drops) 0.2% Soln 1 DROP EACH EYE DAILY Intraocular pressure #1 Ref 0 BOTTLE Buspirone (Buspirone) 5 Mg Tab 5 MG PO BID Anxiety Ref 0 TAB Fluticasone-Salmeterol Inh (Advair Diskus Inh) 250-50 Mcg/Blist Aer 1 PUFF INH BID Rinse mouth after use. #1 Ref 0 INHALER Ketoconazole Topical (Ketoconazole Topical) 2% Cream 1 APPLIC TOPICAL DAILY Fungal Infection #15 Ref 0 GM Loratadine (Claritin) 10 Mg Tab 10 MG PO DAILY Allergy Management Ref 0 TAB Metoprolol Tartrate (Metoprolol Tartrate) 25 Mg Tab 12.5 MG PO BID #60 Ref 0 TAB Potassium Chloride ER (Potassium Chloride ER) 20 Meq Tab 20 MEQ PO BID Electrolyte Replacement #60 Ref 0 TAB Prednisone (Prednisone) 10 Mg Tab 10 MG PO TITRATING DOSE Take 1 tablet three times a day x 5 days then twice a day x 5 days then daily x 5 days Days 15 Ref 0 TAB Tiotropium Inh (Spiriva Handihaler) 18 Mcg Cap 18 MCG INH DAILY 1 capsule = 18 mcg COPD #30 Ref 0 CAP Torsemide (Torsemide) 20 Mg Tab 40 MG PO BID #60 Ref 0 TAB Travoprost Opth Drops (Travatan Z Opth Drops) 0.004 % Soln 1 DROP EACH EYE HS Glaucoma #1 Ref 0 BOTTLE Trazodone (Trazodone) 100 Mg Tab 100 MG PO HS Control Depression #30 Ref 0 TAB Triamcinolone Topical (Triamcinolone Topical) 0.1% Cream 1 APPLIC TOPICAL BID Inflammation Ref 0 GM Zolpidem (Zolpidem) 5 Mg Tab 5 MG PO HS PRN INSOMNIA Ref 0 TAB Uriel Ferreira MD August 11, 2016 8:10 am
[2016-08-11 08:20] VITALS: BP 140/71; PULSE 87; RESP 18; TEMP 98.4; O2SAT 98
[2016-08-11] MEDS: LATANOPROST 0.005% OPHT SOLN 2.5 ML BTL EACH EYE SCH (08:30)
[2016-08-11] MEDS: TRIAMCINOLONE ACETONIDE 0.1% CREAM 15 GM TOPICAL SCH (08:31)
[2016-08-11] MEDS: SODIUM CHLORIDE 0.9% FLUSH 10 ML FLUSH IV FLUSH SCH (08:32)
[2016-08-11] MEDS: TORSEMIDE 20 MG TAB PO SCH (08:33)
[2016-08-11] MEDS: METOPROLOL TARTRATE 25 MG TAB PO SCH (08:34)
[2016-08-11] MEDS: busPIRone HCL 5 MG TAB PO SCH (08:34)
[2016-08-11] MEDS: AZITHROMYCIN 250 MG TAB PO SCH (08:35)
[2016-08-11] MEDS: POTASSIUM CHLORIDE 20 MEQ CONTROLLED RELEASE TAB PO SCH (08:35)
[2016-08-11] MEDS ORDERED: TIOTROPIUM BROMIDE 18 MCG INH INH SCH (09:00)
[2016-08-11] MEDS ORDERED: predniSONE 10 MG TAB PO SCH (09:00)
[2016-08-11] MEDS ORDERED: BRIMONIDINE TARTRATE 0.2% OPHT SOLN 5 ML BTL EACH EYE SCH (09:00)
[2016-08-11] MEDS ORDERED: LORATADINE 10 MG TAB PO SCH (09:00)
[2016-08-11] MEDS ORDERED: KETOCONAZOLE 2% CREAM 15 GM TOPICAL SCH (09:00)
[2016-08-11 09:45] VITALS: PULSE 91
[2016-08-11] MEDS ORDERED: ATORVASTATIN 40 MG TAB PO SCH (21:00)
== END 2016-08-11 10:12 | disposition home or self-care (01) ==
LOC: NEPC 05:03 → INTOOBSV 07:45 → NEDA 07:45 → NEDH 12:02 → NEPHCDU 15:23
PROVIDERS: ADMIT Hospitalist; ATTEND Hospitalist
DX: J44.1 Chronic obstructive pulmonary disease with (acute) exacerbation (principal); R74.8 Abnormal levels of other serum enzymes; Z99.81 Dependence on supplemental oxygen; F41.9 Anxiety disorder, unspecified; Z95.1 Presence of aortocoronary bypass graft; N18.9 Chronic kidney disease, unspecified; I13.0 Hypertensive heart and chronic kidney disease with heart failure and stage 1 through stage 4 chronic kidney disease, or unspecified chronic kidney disease; Z79.01 Long term (current) use of anticoagulants; M19.90 Unspecified osteoarthritis, unspecified site; E78.00 Pure hypercholesterolemia, unspecified; R07.9 Chest pain, unspecified; F12.10 Cannabis abuse, uncomplicated; Z79.899 Other long term (current) drug therapy; I25.10 Atherosclerotic heart disease of native coronary artery without angina pectoris; I25.2 Old myocardial infarction; Z87.891 Personal history of nicotine dependence; R00.0 Tachycardia, unspecified; R94.31 Abnormal electrocardiogram [ECG] [EKG]
CPT/HCPCS: 71010; 80048; 82550; 82552; 83880; 84484; 85007; 85025; 85027; 93005; 94640; 94664; 96374; 99285; G0378; J1650; J1940; J2930; J7512; J7644

== ENCOUNTER 2017-05-14 12:42 | Emergency (ER) | payer OTHER, MEDICAID ==
[~2017-05-14 12:42] MED LIST changes: +ADVA250A INH; -ALBU0.63 NEB; -ASPI81 PO; +ATOR40TA16 PO; -ATOR40TA49 PO; +AZIT250T3 PO; -BACT2CRE TOP; -BRIM0.2S; +BRIM0.2S4 EACH EYE; +BUSP5TAB PO; -DUONI NEB; +IPRASOL INH; +KETO2CRE TOPICAL; +LORA-361 PO; -LORTA5 PO; -METO25 PO; +METO25TA3 PO; +POTA-163 PO; +PRED20 PO; +SPIRCAP INH; +TRAZ100T4 PO; +TRIA.1%T TOPICAL; -UMEC1AER INH; +VENTAER INH; +ZOLP5TAB3 PO; -[UNRECOGNIZED DRUG - CODE] PO
[2017-05-14 12:45] VITALS: BP 134/80; PULSE 60; RESP 22; TEMP 97.4; O2SAT 94
[2017-05-14] MEDS ORDERED: TRAZ100T10 PO (12:53)
[2017-05-14] MEDS ORDERED: TORS20TA PO (12:53)
[2017-05-14] MEDS ORDERED: MELO7.5T27 PO (12:53)
[2017-05-14] MEDS ORDERED: POTA-163 PO (12:53)
[2017-05-14] MEDS ORDERED: UMEC1AER INH (12:53)
--- NOTE | 2017-05-14 12:57 | PD ---
HPI Chief Complaint: Skin Problem Time Seen by Provider: 12:52 Travel History International Travel<30 days: No Contact w/Intl Traveler<30days: No Traveled to known affect area: No History of Present Illness HPI 71-year-old male presents to emergency department for evaluation of a pruritic rash. Patient states he has had this intermittently for years. He states it flares and he typically would go to his doctor and get a shot and then it would improve. Patient denies any new exposures. States it has been worsening over the last couple of weeks. Denies any chest or tightness. No difficulty breathing. No sensation of oral swelling. He has no other symptoms to report. PFSH Past Medical History Hx Anticoagulant Therapy: Yes Arthritis: Yes Asthma: Yes Autoimmune Disease: No Anxiety: Yes Depression: No Heart Rhythm Problems: No Cancer: No Cardiovascular Problems: Yes High Cholesterol: Yes Chemotherapy: No Chest Pain: Yes Congestive Heart Failure: Yes COPD: Yes Coronary Artery Disease: Yes Diabetes: No Diminished Hearing: No Endocrine: No Gastrointestinal Disorders: Yes GERD: No Glaucoma: Yes Genitourinary: No Hiatal Hernia: No Hypertension: Yes Immune Disorder: No Implanted Vascular Access Dvce: No Musculoskeletal: Yes Neurologic: No Psychiatric: Yes Reproductive: No Respiratory: Yes (COPD) Radiation Therapy: No Sickle Cell Disease: No Sleep Apnea: No Thyroid Disease: No Ulcer: No Past Surgical History Abdominal Surgery: Yes AICD: No Arteriovenous Shunt: No Cardiac Surgery: Yes (cath, CABGX3 VESSELS) Cholecystectomy: Yes Ear Surgery: No Endocrine Surgery: No Eye Surgery: Yes Genitourinary Surgery: No Gynecologic Surgery: No Insulin Pump: No Joint Replacement: No Neurologic Surgery: No Oral Surgery: No Pacemaker: No Thoracic Surgery: Yes ( ) Tonsillectomy: Yes Other Surgery: Yes (catarcts, gallbladder, glaucoma) Social History Alcohol Use: Yes (OCC) Tobacco Use: Yes Substance Use: Yes (MARIJUANA) Allergies-Medications (Allergen,Severity, Reaction): Coded Allergies: *MDRO Multi-Drug Resistant Organism (Verified Adverse Reaction, Unknown, ) 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 Erythematous blanchable Micropapular rash on the extremities. No vesicular or pustule formation. HEAD: Normocephalic. EYES: No scleral icterus. No injection or drainage. ENT: Mucosa pink and moist. No erythema or exudates. No uvular edema. No uvular , palatal, or tonsillar deviation. Airway patent. Nasal turbinates appear normal without nasal blood, purulent drainage or septal hematoma. NECK: Supple, trachea midline. No JVD or lymphadenopathy. CARDIOVASCULAR: Regular rate and rhythm without murmurs, gallops, or rubs. RESPIRATORY: Breath sounds equal bilaterally. No accessory muscle use. GASTROINTESTINAL: Abdomen soft, non-tender, nondistended. MUSCULOSKELETAL: No cyanosis, or edema. BACK: Nontender without obvious deformity. No CVA tenderness. Data Data Last Documented VS Vital Signs Date Time Temp Pulse Resp B/P (MAP) Pulse Ox O2 Delivery O2 Flow Rate FiO2 05/14/17 14:12 05/14/17 12:45 97.4 60 22 94 Orders Orders Dexamethasone Inj (Decadron Inj) (05/14/17 13:00) Ranitidine Liq (Zantac Liq) (05/14/17 13:00) [facility] Medical Decision Making Medical Screen Exam Complete: Yes Emergency Medical Condition: Yes Medical Record Reviewed: Yes Differential Diagnosis Contacted metritis versus atopic dermatitis versus psoriasis versus scabies Narrative Course 71-year-old male presents to emergency department for evaluation of a pruritic rash. Patient appears without distress. He does have a erythematous micropapular rash on his extremities. Patient is given Decadron IM and Zantac by mouth. Upon reassessment, patient verbalizes marked improvement in his symptoms. He is counseled on care encouraged to seek dermatology evaluation return immediately with any acute worsening of symptoms. Diagnosis Primary Impression: Dermatitis Referrals: [employer] Patient Instructions: Eczema (ED), General Instructions Med/Other Pt SpecificInfo: No Change to Meds Disposition: 01 DISCHARGE HOME Condition: Stable Teri Jones May 14, 2017 12:57
[2017-05-14] MEDS ORDERED: DEXAMETHASONE SOD PHOS 4 MG/ML VIAL IM ONE (13:00)
[2017-05-14] MEDS ORDERED: RANITIDINE HCL SYRUP 150 MG/10 ML UDC PO ONE (13:00)
== END 2017-05-14 14:20 | disposition home or self-care (01) ==
LOC: NEPD 12:42
DX: L30.9 Dermatitis, unspecified (principal); J44.9 Chronic obstructive pulmonary disease, unspecified; F41.9 Anxiety disorder, unspecified; E78.00 Pure hypercholesterolemia, unspecified; I11.0 Hypertensive heart disease with heart failure; I50.9 Heart failure, unspecified; I25.10 Atherosclerotic heart disease of native coronary artery without angina pectoris; F12.90 Cannabis use, unspecified, uncomplicated; Z72.0 Tobacco use
CPT/HCPCS: 96372; 99283; J1100

== ENCOUNTER 2017-06-23 10:37 | Emergency (ER) | payer OTHER, MEDICAID ==
[~2017-06-23] VITALS: Ht 157.5 cm; Wt 80.0 kg
[~2017-06-23 10:37] MED LIST changes: -ADVA250A INH; -ATOR40TA16 PO; -AZIT250T3 PO; -BRIM0.2S4 EACH EYE; -BUSP5TAB PO; -IPRASOL INH; -KETO2CRE TOPICAL; -LORA-361 PO; +MELO7.5T27 PO; -METO25TA3 PO; -PRED10 PO; -PRED20 PO; -SPIRCAP INH; -TRAV0.00 EACH EYE; +TRAZ100T10 PO; -TRAZ100T4 PO; -TRIA.1%T TOPICAL; +UMEC1AER INH; -VENTAER INH; -ZOLP5TAB3 PO
[2017-06-23 10:41] VITALS: BP 140/76; PULSE 78; RESP 16; TEMP 97.9; O2SAT 95
[2017-06-23] MEDS ORDERED: CLINDAMYCIN PHOS 600 MG/4 ML VIAL IM ONE (11:15)
[2017-06-23] MEDS ORDERED: BACT800T5 PO (11:25)
[2017-06-23] MEDS ORDERED: CLIN150C14 PO (11:25)
--- NOTE | 2017-06-23 11:25 | PD ---
HPI Chief Complaint: Skin Problem Time Seen by Provider: 11:05 Travel History International Travel<30 days: No Contact w/Intl Traveler<30days: No Traveled to known affect area: No History of Present Illness HPI 71-year-old male complains of painful lumps the left groin. Patient states that the symptoms started several days ago. Patient denies any injury. Patient denies any fever chills. Patient has history of recurrent infected lesions on the left leg in the past. Patient is up-to-date with TD booster. PFSH Past Medical History Hx Anticoagulant Therapy: Yes Arthritis: Yes Asthma: Yes Autoimmune Disease: No Anxiety: Yes Depression: No Heart Rhythm Problems: No Cancer: No Cardiovascular Problems: Yes High Cholesterol: Yes Chemotherapy: No Chest Pain: Yes Congestive Heart Failure: Yes COPD: Yes Coronary Artery Disease: Yes Diabetes: No Diminished Hearing: No Endocrine: No Gastrointestinal Disorders: Yes GERD: No Glaucoma: Yes Genitourinary: No Hiatal Hernia: No Hypertension: Yes Immune Disorder: No Implanted Vascular Access Dvce: No Musculoskeletal: Yes Neurologic: No Psychiatric: Yes Reproductive: No Respiratory: Yes (COPD) Radiation Therapy: No Sickle Cell Disease: No Sleep Apnea: No Thyroid Disease: No Ulcer: No Past Surgical History Abdominal Surgery: Yes AICD: No Arteriovenous Shunt: No Cardiac Surgery: Yes (cath, CABGX3 VESSELS) Cholecystectomy: Yes Ear Surgery: No Endocrine Surgery: No Eye Surgery: Yes Genitourinary Surgery: No Gynecologic Surgery: No Insulin Pump: No Joint Replacement: No Neurologic Surgery: No Oral Surgery: No Pacemaker: No Thoracic Surgery: Yes ( ) Tonsillectomy: Yes Other Surgery: Yes (catarcts, gallbladder, glaucoma) Social History Alcohol Use: Yes (OCC) Tobacco Use: Yes Substance Use: Yes (MARIJUANA) Allergies-Medications (Allergen,Severity, Reaction): Coded Allergies: *MDRO Multi-Drug Resistant Organism (Verified Adverse Reaction, Unknown, ) 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) Reported Meds & Prescriptions Reported Meds & Active Scripts Active Reported Anoro Ellipta Inh (Umeclidinium/Vilanterol) 62.5-25 Mcg/Act Aero 1 Puff INH DAILY Potassium Chloride ER (Potassium Chloride) 20 Meq Tab 20 Meq PO DAILY Torsemide 20 Mg Tab 20 Mg PO DAILY Meloxicam 7.5 Mg Tab 7.5 Mg PO DAILY Trazodone (Trazodone HCl) 100 Mg Tablet 100 Mg PO Review of Systems General / Constitutional: No: Fever Eyes: No: Visual changes HENT: No: Headaches Cardiovascular: No: Chest Pain or Discomfort Respiratory: No: Shortness of Breath Gastrointestinal: No: Abdominal Pain Genitourinary: No: Dysuria Musculoskeletal: No: Pain Skin: No Rash Neurologic: No: Weakness Psychiatric: No: Depression Endocrine: No: Polydipsia Hematologic/Lymphatic: No: Easy Bruising Physical Exam Narrative GENERAL: Well-nourished, well-developed patient. SKIN: Focused skin assessment warm/dry. HEAD: Normocephalic. EYES: No scleral icterus. No injection or drainage. NECK: Supple, trachea midline. No JVD or lymphadenopathy. CARDIOVASCULAR: Regular rate and rhythm without murmurs, gallops, or rubs. RESPIRATORY: Breath sounds equal bilaterally. No accessory muscle use. GASTROINTESTINAL: Abdomen soft, non-tender, nondistended. MUSCULOSKELETAL: No cyanosis, or edema. BACK: Nontender without obvious deformity. No CVA tenderness. Patient has several nodular lesion on the left inguinal area and left upper thigh medially. No induration and no discharge. Tenderness on palpation. Data Data Last Documented VS Vital Signs Date Time Temp Pulse Resp B/P (MAP) Pulse Ox O2 Delivery O2 Flow Rate FiO2 06/23/17 10:41 97.9 78 16 140/76 (97) 95 Orders Orders Clindamycin Inj (Cleocin Inj) (06/23/17 11:15) [facility] Medical Decision Making Medical Screen Exam Complete: Yes Emergency Medical Condition: Yes Differential Diagnosis Differential diagnoses include folliculitis, cellulitis, abscess. Narrative Course 71-year-old male with infected lesions and pain swelling of left groin and left medial thigh. Clindamycin 600 mg IM. Diagnosis Primary Impression: Cellulitis of left leg Additional Impression: Folliculitis Patient Instructions: General Instructions Med/Other Pt SpecificInfo: Prescription(s) given Scripts Sulfamethoxazole-Trimethoprim (Bactrim DS) 800-160 Mg Tab 1 TAB PO BID for Infection, #20 TAB 0 Refills Prov: Cole Osorio MD 06/23/17 Clindamycin (Clindamycin) 150 Mg Cap 300 MG PO TID for Infection, #60 CAP 0 Refills Prov: Cole Osorio MD 06/23/17 Disposition: 01 DISCHARGE HOME Condition: Stable Cole Osorio MD Jun 23, 2017 11:25
[2017-06-23 12:10] VITALS: BP 158/73
== END 2017-06-23 12:12 | disposition home or self-care (01) ==
LOC: NEPD 10:37
DX: L03.116 Cellulitis of left lower limb (principal); L73.9 Follicular disorder, unspecified; F41.9 Anxiety disorder, unspecified; E78.00 Pure hypercholesterolemia, unspecified; I11.0 Hypertensive heart disease with heart failure; I50.9 Heart failure, unspecified; I25.10 Atherosclerotic heart disease of native coronary artery without angina pectoris; Z72.0 Tobacco use; F12.90 Cannabis use, unspecified, uncomplicated
CPT/HCPCS: 96372